=== PATIENT | male | born 1955 | race Caucasian/White ===

== ENCOUNTER 2021-02-11 08:43 | Emergency (ER) | payer MEDICARE, OTHER ==
[~2021-02-11] VITALS: Ht 172.7 cm; Wt 80.9 kg
--- NOTE | 2021-02-11 09:19 | PHYS DOC ---
Past History Additional Past Medical Histor: benign enlarged prostate; chronic shoulder pain Past Surgical History: Appendectomy Additional Smoking Information: chews tobacco daily Alcohol Use: None General Adult EDM: Chief Complaint: MECHANICAL FALL HPI: HPI: 66-year-old male presents with bilateral knee pain. The patient was carrying a box down some stairs and he missed the last stair. He went down onto both knees with the lower leg tucked behind him. He felt like his left patella may have dislocated and then relocated when he straighten his leg out. That knee is hurting more than the right, but the right is more swollen. Patient denies hitting his head or being knocked unconscious. He has no other complaints this time. Review of Systems: Review of Systems: Constitutional: Denies fever or chills Eyes: Denies change in visual acuity HENT: Denies nasal congestion or sore throat Respiratory: Denies cough or shortness of breath Cardiovascular: Denies chest pain or edema GI: Denies abdominal pain, nausea, vomiting, bloody stools or diarrhea : Denies dysuria Musculoskeletal: Bilateral knee pain Integument: Denies rash Neurologic: Denies headache, focal weakness or sensory changes Endocrine: Denies polyuria or polydipsia Lymphatic: Denies swollen glands Psychiatric: Denies depression or anxiety Allergies: Allergies: Allergies Coded Allergies Type Severity Reaction Last Updated Verified No Known Drug Allergies 02/11/21 No Physical Exam: PE: Constitutional: Well developed, well nourished, no acute distress, non-toxic appearance. [] HENT: Normocephalic, atraumatic, bilateral external ears normal, oropharynx justyna st, no oral exudates, nose normal. [] Eyes: PERRLA, EOMI, conjunctiva normal, no discharge. [] Neck: Normal range of motion, no tenderness, supple, no stridor. [] Cardiovascular:Heart rate regular rhythm, no murmur [] Lungs & Thorax: Bilateral breath sounds clear to auscultation [] Abdomen: Bowel sounds normal, soft, no tenderness, no masses, no pulsatile masses. [] Skin: Warm, dry, no erythema, no rash. [] Back: No tenderness, no CVA tenderness. [] Extremities: Tenderness in general swelling of the bilateral knees. Range of motion deferred till after x-rays. [] Neurologic: Alert and oriented X 3, normal motor function, normal sensory function, no focal deficits noted. [] Psychologic: Affect normal, judgement normal, mood normal. [] Current Patient Data: Vital Signs: Vital Signs Date Time Temp Pulse Resp B/P (MAP) Pulse Ox O2 Delivery O2 Flow Rate FiO2 02/11/21 08:53 98.3 96 20 154/86 (108) 97 Room Air EKG: EKG: [] Radiology/Procedures: Radiology/Procedures: [] Impressions: XR KNEE 4 VIEWS WITH PATELLA History: Reason: fall, swelling RT WORSE THAN LEFT / Spl. Instructions: / History: Technique: 4 views bilateral knees. Comparison: None. Findings: Right knee: No dislocation. Mild right knee DJD most prominent within the medial patellofemoral compartments. No significant knee joint effusion. Significant anterior knee soft tissue swelling. Fragmented osteophyte along the anterior aspect of the patella. Left knee: Superior dislocation/subluxation of the patella. Anterior knee soft tissue swelling. Fragmentation of the inferior patella with displaced probable avulsion fracture fragment. No significant knee joint effusion. Impression: 1. Superior dislocation/subluxation of the LEFT patella with avulsion fracture fragment. 2. Fragmentation of the anterior right patellar osteophyte, may represent acute fracture. 3. Bilateral anterior knee soft tissue swelling, right greater than left. Electronically signed by: Sam Moffett DO (02/11/2021 10:12 AM) [id number] DICTATED AND SIGNED BY: SAM MOFFETT DO DATE: 02/11/21 1002 CC: KEIRY LLAMAS DO; JACINTO MOREL MD ~MTH0 0 CT LOWER LEFT EXTREMITY WITHOUT CONTRAST History: Reason: possible infrapatellar ligament tear Left / Spl. Instructions: / History: Comparison: Radiograph February 11, 2021 Technique: Noncontrast CT imaging was performed of the left knee. Coronal and sagittal reconstructions were performed. Exposure: One or more of the following individualized dose reduction techniques were utilized for this examination: 1. Automated exposure control 2. Adjustment of the mA and/or kV according to patient size 3. Use of iterative reconstruction technique. Findings: Superior patellar dislocation with injury of the patellar ligament. Small avulsion fracture fragment measures 0.5 cm. No significant knee joint effusion. Anterior knee soft tissue swelling. Mild knee degenerative changes. Subchondral cystic changes within the lateral compartment. Partially imaged right knee. Severe anterior right knee soft tissue swelling. Presentation of anterior patellar osteophyte, potentially acute fracture. Mild right knee DJD. Impression: 1. Left superior patellar dislocation with injury of the patellar ligament and small avulsion fracture fragment. Electronically signed by: Sam Moffett DO (02/11/2021 11:38 AM) [id number] DICTATED AND SIGNED BY: SAM MOFFETT DO DATE: 02/11/21 1129 CC: KEIRY LLAMAS DO; JACINTO MOREL MD ~MTH0 0 Heart Score: C/O Chest Pain: N/A Risk Factors: Risk Factors: DM, Current or recent (<one month) smoker, HTN, HLP, family history of CAD, obesity. Risk Scores: Score 0 - 3: 2.5% MACE over next 6 weeks - Discharge Home Score 4 - 6: 20.3% MACE over next 6 weeks - Admit for Clinical Observation Score 7 - 10: 72.7% MACE over next 6 weeks - Early Invasive Strategies Course & Med Decision Making: Course & Med Decision Making Pertinent Labs and Imaging studies reviewed. (See chart for details) The patient's x-ray showed right patellar ossicle fracture and superior dislocation of the left knee. Performed CT of the left knee which also shows superior dislocation and tendon disruption. I have consulted orthopedics. I spoke with Dr. Norris and he has recommended immobilizer for the next knee and follow-up in the office tomorrow or the next day and schedule surgery likely this week. I made the patient aware of this plan. He is in agreement. He is stable for discharge at this time. [] Dragon Disclaimer: Dragon Disclaimer: This electronic medical record was generated, in whole or in part, using a voice recognition dictation system. Departure Departure: Impression: Primary Impression: Right patella fracture Qualified Codes: S82.091A - Other fracture of right patella, initial encounter for closed fracture Additional Impression: Closed patellar dislocation Qualified Codes: S83.005A - Unspecified dislocation of left patella, initial encounter Disposition: 01 HOME / SELF CARE / HOMELESS Condition: STABLE Referrals: JACINTO MOREL MD (PCP) Patient Instructions: Patellar Dislocation-Brief, Patellar Fracture with Rehab- [facility] Additional Instructions: You will be in a knee immobilizer until you see orthopedics. You can call Dr. Blanca linares's office at [phone] to make a follow-up appointment and to schedule surgery to repair your patella ligament. KEIRY LLAMAS DO Feb 11, 2021 09:19
--- NOTE | 2021-02-11 10:15 | RAD ---
XR KNEE 4 VIEWS WITH PATELLA History: Reason: fall, swelling RT WORSE THAN LEFT / Spl. Instructions: / History: Technique: 4 views bilateral knees. Comparison: None. Findings: Right knee: No dislocation. Mild right knee DJD most prominent within the medial patellofemoral aster rtments. No significant knee joint effusion. Significant anterior knee soft tissue swelling. Fragment ed osteophyte along the anterior aspect of the patella. Left knee: Superior dislocation/subluxation of the patella. Anterior knee soft tissue swelling. Fragm entation of the inferior patella with displaced probable avulsion fracture fragment. No significant k nee joint effusion. Impression: 1. Superior dislocation/subluxation of the LEFT patella with avulsion fracture fragment. 2. Fragmentation of the anterior right patellar osteophyte, may represent acute fracture. 3. Bilateral anterior knee soft tissue swelling, right greater than left. Electronically signed by: Sam Moffett DO (02/11/2021 10:12 AM) [id number]
[2021-02-11] MEDS ORDERED: MORPHINE SULFATE 4 MG/ML DISP.SYRIN. IM ONE (11:15)
--- NOTE | 2021-02-11 11:41 | RAD ---
CT LOWER LEFT EXTREMITY WITHOUT CONTRAST History: Reason: possible infrapatellar ligament tear Left / Spl. Instructions: / History: Comparison: Radiograph February 11, 2021 Technique: Noncontrast CT imaging was performed of the left knee. Coronal and sagittal reconstruction s were performed. Exposure: One or more of the following individualized dose reduction techniques were utilized for thi s examination: 1. Automated exposure control 2. Adjustment of the mA and/or kV according to patient size 3. Use of iterative reconstruction technique. Findings: Superior patellar dislocation with injury of the patellar ligament. Small avulsion fracture fragment measures 0.5 cm. No significant knee joint effusion. Anterior knee soft tissue swelling. Mild knee degenerative changes. Subchondral cystic changes within the lateral compartment. Partially imaged right knee. Severe anterior right knee soft tissue swelling. Presentation of anterio r patellar osteophyte, potentially acute fracture. Mild right knee DJD. Impression: 1. Left superior patellar dislocation with injury of the patellar ligament and small avulsion fractu re fragment. Electronically signed by: Sam Moffett DO (02/11/2021 11:38 AM) [id number]
[2021-02-11 13:15] VITALS: BP 130/82
== END 2021-02-11 13:18 | disposition home or self-care (01) ==
LOC: ER 08:43
DX: S82.001A Unspecified fracture of right patella, initial encounter for closed fracture (principal); S83.005A Unspecified dislocation of left patella, initial encounter; G89.29 Other chronic pain; F17.220 Nicotine dependence, chewing tobacco, uncomplicated; W10.8XXA Fall (on) (from) other stairs and steps, initial encounter; Y93.89 Activity, other specified; Y92.89 Other specified places as the place of occurrence of the external cause; Y99.8 Other external cause status
CPT/HCPCS: 29505; 73564; 73700; 96372; 99284; J2270